=== PATIENT | male | born 1995 | race Two or more races ===

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

== ENCOUNTER 2017-03-07 10:25 | Inpatient (IN) | payer SELFPAY ==
[~2017-03-07] VITALS: Ht 160 cm; Wt 49.7 kg
--- NOTE | 2017-03-07 10:42 | PHYS DOC ---
Past Medical History Past Medical History: No Pertinent History Past Surgical History: No Surgical History Alcohol Use: Rarely Adult General Chief Complaint Chief Complaint: ABDOMINAL PAIN HPI HPI Patient is a 21 year old male who presents with pain, nausea vomiting , rectal bleeding. He states his back spent bothering him in for last week she' s been doing Advil for the last 7 days he's been taking about 5 times a day. He states 2 days ago he developed periumbilical pain and use a bathroom had bright red blood per rectum twice. He states the pain was tolerable and is able to still work. This morning his pain got worse he vomited black vomit and presents to the ER. According his mom's not been eating or drinking much over the last several weeks. He denies any chest pain but complains of pain around his belly button and his left upper quadrant. He denies any falls. He states he's never had blood per rectum before. He denies any past medical history other than having a diagnosis of possibly anxiety. He denies any abdominal surgeries. He denies any testicular pain. He is tachycardic with heart rate in the 108 range on my exam. We presented to the ER they notice heart rate 116. Review of Systems Review of Systems Constitutional: Denies fever or chills [] Eyes: Denies change in visual acuity, redness, or eye pain [] HENT: Denies nasal congestion or sore throat [] Respiratory: Denies cough or shortness of breath [] Cardiovascular: No additional information not addressed in HPI [] GI: Positive for abdominal pain, nausea, vomiting, bloody stools Denies diarrhea [] : Denies dysuria or hematuria [] Musculoskeletal: Denies back pain or joint pain [] Integument: Denies rash or skin lesions [] Neurologic: Denies headache, focal weakness or sensory changes [] Endocrine: Denies polyuria or polydipsia [] All other systems were reviewed and found to be within normal limits, except as documented in this note. Current Medications Current Medications Current Medications Medications (Trade) Dose Ordered Sig/Aleyda Start Time Stop Time Status Last Admin Dose Admin Info (Do NOT chart on this entry -- for MONITORING) 1 each PRN DAILY PRN 03/07/17 11:45 03/09/17 11:44 Iohexol (Omnipaque 300 Mg/ml) 75 ml 1X ONCE 03/07/17 11:45 03/07/17 11:46 DC 03/07/17 11:53 75 ML Morphine Sulfate 2 mg PRN Q15MIN PRN 03/07/17 11:00 03/08/17 10:59 Ondansetron HCl (Zofran) 4 mg 1X ONCE 03/07/17 10:45 03/07/17 10:46 DC 03/07/17 10:56 4 MG Pantoprazole Sodium 80 mg/ Sodium Chloride 100 ml @ 10 mls/hr Q10H 03/07/17 13:00 Sodium Chloride 1,000 ml @ 1,000 mls/hr 1X ONCE 03/07/17 12:15 03/07/17 13:14 03/07/17 12:23 1,000 MLS/HR Allergies Allergies Allergies Coded Allergies Type Severity Reaction Last Updated Verified acetaminophen Allergy Intermediate NAUSEA 08/22/16 Yes codeine Allergy Intermediate NAUSEA 08/22/16 Yes Physical Exam Physical Exam Constitutional: Well developed, well nourished, no acute distress, non-toxic appearance. [] HENT: Normocephalic, atraumatic, bilateral external ears normal, oropharynx moist, no oral exudates, nose normal. [] Eyes: PERRLA, EOMI, conjunctiva normal, no discharge. [] Neck: Normal range of motion, no tenderness, supple, no stridor. [] Cardiovascular:Heart rate regular rhythm, no murmur [] Lungs & Thorax: Bilateral breath sounds clear to auscultation [] Abdomen: Bowel sounds normal, soft, tender to palpation in the right lower quadrant and left upper quadrant, no rebound or guarding, no masses, no pulsatile masses. No testicular pain. Skin: Warm, dry, no erythema, no rash. [] Back: No tenderness, no CVA tenderness. [] Extremities: No tenderness, no cyanosis, no clubbing, ROM intact, no edema. [] Neurologic: Alert and oriented X 3, normal motor function, normal sensory function, no focal deficits noted. [] Psychologic: Affect normal, judgement normal, mood normal. [] Current Patient Data Vital Signs Vital Signs Date Time Temp Pulse Resp B/P (MAP) Pulse Ox O2 Delivery O2 Flow Rate FiO2 03/07/17 12:13 96 129/66 (87) 99 Room Air 03/07/17 10:39 98.2 22 98.2 Lab Values Laboratory Tests Test 03/07/17 10:37 03/07/17 10:40 03/07/17 10:45 Urine Collection Type Void Urine Color Yellow Urine Clarity Clear Urine pH 6.0 Urine Specific [place] 1.015 Urine Protein Negative mg/dL (NEG-TRACE) Urine Glucose (UA) Negative mg/dL (NEG) Urine Ketones (Stick) Trace mg/dL (NEG) Urine Blood Negative (NEG) Urine Nitrite Negative (NEG) Urine Bilirubin Negative (NEG) Urine Urobilinogen Dipstick 0.2 mg/dL (0.2 mg/dL) Urine Leukocyte Esterase Negative (NEG) Urine RBC 0 /HPF (0-2) Urine WBC 1-4 /HPF (0-4) Urine Squamous Epithelial Cells Mod /LPF Urine Bacteria Few /HPF (0-FEW) Urine Mucus Slight /LPF White Blood Count 11.3 x10^3/uL (4.0-11.0) H Red Blood Count 4.74 x10^6/uL (4.30-5.70) Hemoglobin 15.2 g/dL (13.0-17.5) Hematocrit 45.4 % (39.0-53.0) Mean Corpuscular Volume 96 fL (79-100) Mean Corpuscular Hemoglobin 32 pg (25-35) Mean Corpuscular Hemoglobin Concent 34 g/dL (31-37) Red Cell Distribution Width 13.2 % (11.5-14.5) Platelet Count 333 x10^3/uL (140-400) Neutrophils (%) (Auto) 68 % (31-73) Lymphocytes (%) (Auto) 23 % (24-48) L Monocytes (%) (Auto) 9 % (0-9) Eosinophils (%) (Auto) 0 % (0-3) Basophils (%) (Auto) 1 % (0-3) Neutrophils # (Auto) 7.6 x10^3uL (1.8-7.7) Lymphocytes # (Auto) 2.6 x10^3/uL (1.0-4.8) Monocytes # (Auto) 1.0 x10^3/uL (0.0-1.1) Eosinophils # (Auto) 0.0 x10^3/uL (0.0-0.7) Basophils # (Auto) 0.1 x10^3/uL (0.0-0.2) Prothrombin Time 14.0 SEC (11.7-14.0) Prothrombin Time INR 1.2 (0.8-1.1) H PTT 28 SEC (24-38) Sodium Level 139 mmol/L (136-145) Potassium Level 3.7 mmol/L (3.5-5.1) Chloride Level 103 mmol/L (98-107) Carbon Dioxide Level 20 mmol/L (21-32) L Anion Gap 16 (6-14) H Blood Urea Nitrogen 20 mg/dL (8-26) Creatinine 1.2 mg/dL (0.7-1.3) Estimated GFR (Cockcroft-Gault) 78.0 Glucose Level 110 mg/dL (70-99) H Calcium Level 10.0 mg/dL (8.5-10.1) Total Bilirubin 1.0 mg/dL (0.2-1.0) Direct Bilirubin 0.2 mg/dL (0.0-0.2) Aspartate Amino Transferase (AST) 22 U/L (15-37) Alanine Aminotransferase (ALT) 17 U/L (16-63) Alkaline Phosphatase 86 U/L (46-116) Creatine Kinase 128 U/L (39-308) Total Protein 8.7 g/dL (6.4-8.2) H Albumin 4.8 g/dL (3.4-5.0) Lipase 87 U/L (73-393) Urine Opiates Screen Neg (NEG) Urine Methadone Screen Neg (NEG) Urine Barbiturates Neg (NEG) Urine Phencyclidine Screen Neg (NEG) Urine Amphetamine/Methamphetamine Neg (NEG) Urine Benzodiazepines Screen Neg (NEG) Urine Cocaine Screen Neg (NEG) Urine Cannabinoids Screen Neg (NEG) Urine Ethyl Alcohol Neg (NEG) Stool Occult Blood Positive (NEG) Laboratory Tests 03/07/17 10:40 Laboratory Tests 03/07/17 10:40 EKG EKG [] Radiology/Procedures Radiology/Procedures [facility] [address] [place] [address] IMAGING REPORT Signed PATIENT: JAMMIE DANGELO ACCOUNT: [id number] : 1995 LOCATION: ER AGE: 21 SEX: M EXAM STATUS: REG ER ORD. PHYSICIAN: YUNI QUINONES MD REASON: abd pain PROCEDURE: CT ABD PELV W/ IV CONTRST ONLY CT ABD PELV W/ IV CONTRST ONLY History:Abdominal pain, dark bloody stools since last night Technique: After administration of intravenous contrast, CT imaging was performed of the abdomen and pelvis, multiplanar reconstruction images submitted. No oral contrast was given as per request. Exposure: One or more of the following individualized dose reduction techniques were utilized for this exam: 1. Automated exposure control.2. Adjustment of the mA and/or KV according to patient size.3. Use of iterative reconstruction technique. Contrast: 35 cc Omnipaque 300 Comparison: None Findings: There is no abnormality visualized lung bases. No focal abnormality is identified of the liver, spleen, pancreas, gallbladder, adrenal glands, kidneys. Accurate evaluation of bowel is limited without oral contrast. There is no free air or significant intraluminal fluid collection. Normal appendix is visualized. No significant inflammatory change is identified about the bowel. There is nonspecific heterogeneity of the seminal vesicles. Impression: 1.No acute abnormality is identified. DICTATED and SIGNED BY: JAQUELIN GUILLEN MD DATE: 03/07/17 1204 CC: YUNI QUINONES MD; MALI ABAD MD ~ Impressions: GI bleed Mild metabolic acidosis Tachycardia Course & Med Decision Making Course & Med Decision Making Pertinent Labs and Imaging studies reviewed. (See chart for details) Rectal exam performed by nurse, she states no external hemorrhoids noted no blood noted on rectal exam. Patient arrived tachycardic with heart rate at 116. Labs shows mild acidosis with a mild. I assume this is from starvation ketoacidosis she does have some ketones in his urine as well. He received 2 L normal saline and his heart rate has improved to 95-105 range. He is currently receiving a second liter. CT abdomen and pelvis is nonacute. He's been typed and screened and Protonix IV has been started. He likely has gastritis or ulceration secondary from nonsteroidal use for his back pain. Spoke with Dr. Wong who agrees to admit the patient. Patient's in stable condition at this time. Dragon Disclaimer Dragon Disclaimer This electronic medical record was generated, in whole or in part, using a voice recognition dictation system. Departure Departure Impression: Primary Impression: GI bleed Disposition: ADMITTED INPATIENT Admitting Physician: Shannan Wong Condition: STABLE Referrals: MALI ABAD MD (PCP) YUNI QUINONES MD Mar 07, 2017 10:42
[2017-03-07] MEDS ORDERED: IV NORMAL SALINE 1000ML BAG 1,000 ML IV SCH (10:44)
[2017-03-07] MEDS ORDERED: ONDANSETRON PF 4 MG/2 ML VIAL. IV ONE (10:45)
[2017-03-07 10:58] LABS: BASO # 0.1 x10^3/uL (0.0-0.2); BASO % 1 % (0-3); EOS % 0 % (0-3); HEMATOCRIT 45.4 % (39.0-53.0); HEMOGLOBIN 15.2 g/dL (13.0-17.5); LYMPH # 2.6 x10^3/uL (1.0-4.8); LYMPH % 23 % (24-48); MEAN CORPUSCULAR HEMOGLOBIN 32 pg (25-35); MEAN CORPUSCULAR HGB CONC 34 g/dL (31-37); MEAN CORPUSCULAR VOLUME 96 fL (79-100); MONO % 9 % (0-9); NEUT % 68 % (31-73); PLATELET COUNT 333 x10^3/uL (140-400); RED BLOOD COUNT 4.74 x10^6/uL (4.30-5.70); RED CELL DISTRIBUTION WIDTH 13.2 % (11.5-14.5); WHITE BLOOD COUNT 11.3 x10^3/uL (4.0-11.0)
[2017-03-07] MEDS ORDERED: MORPHINE SULFATE 2 MG/ML DISP.SYRIN. IV/SQ PRN (11:00)
[2017-03-07 11:05] LABS: CREATININE 1.2 mg/dL (0.7-1.3)
[2017-03-07 11:06] LABS: POTASSIUM 3.7 mmol/L (3.5-5.1)
[2017-03-07 11:12] LABS: BACTERIA,URINE FEW /HPF (0-FEW); BILIRUBIN,URINE NEGATIVE (NEG); GLUCOSE,URINE NEGATIVE (NEG); NITRITE,URINE NEGATIVE (NEG); PROTEIN,URINE NEGATIVE (NEG-TRACE); RBC,URINE 0 /HPF (0-2); SQUAMOUS EPITHELIAL CELL,UR MOD /LPF; UROBILINOGEN,URINE 0.2 mg/dL (0.2 mg/dL)
[2017-03-07 11:12] LABS: ALBUMIN 4.8 g/dL (3.4-5.0); DIRECT BILIRUBIN 0.2 mg/dL (0.0-0.2); TOTAL PROTEIN 8.7 g/dL (6.4-8.2)
[2017-03-07 11:13] LABS: NEG OBC FOB NEG; POS OBC FOB POS
[2017-03-07 11:15] LABS: BARBITURATES NEG (NEG); BENZODIAZEPINES NEG (NEG); CANNABINOIDS NEG (NEG); COCAINE NEG (NEG); METHADONE NEG (NEG); OPIATES NEG (NEG); PHENCYCLIDINE NEG (NEG)
[2017-03-07 11:33] LABS: INR 1.2 (0.8-1.1)
[2017-03-07] MEDS ORDERED: IOHEXOL 300 MG/ML 100ML VIAL. IV ONE (11:45)
[2017-03-07] MEDS ORDERED: CONTRAST GIVEN MC PRN (11:45)
[2017-03-07] MEDS ORDERED: IV NORMAL SALINE 1000ML BAG 1,000 ML IV ONE (12:15)
--- NOTE | 2017-03-07 12:15 | RAD ---
CT ABD PELV W/ IV CONTRST ONLY History:Abdominal pain, dark bloody stools since last night Technique: After administration of intravenous contrast, CT imaging was performed of the abdomen and pelvis, multiplanar reconstruction images submitted. No oral contrast was given as per request. Exposure: One or more of the following individualized dose reduction techniques were utilized for this exam: 1. Automated exposure control.2. Adjustment of the mA and/or KV according to patient size.3. Use of iterative reconstruction technique. Contrast: 35 cc Omnipaque 300 Comparison: None Findings: There is no abnormality visualized lung bases. No focal abnormality is identified of the liver, spleen, pancreas, gallbladder, adrenal glands, kidneys. Accurate evaluation of bowel is limited without oral contrast. There is no free air or significant intraluminal fluid collection. Normal appendix is visualized. No significant inflammatory change is identified about the bowel. There is nonspecific heterogeneity of the seminal vesicles. Impression: 1.No acute abnormality is identified.
[2017-03-07] MEDS: PANTOPRAZOLE SODIUM IV DRIP 80 MG in IV NORMAL SALINE 100ML 100 ML IV SCH ×2 (12:46→20:37)
[2017-03-07] MEDS ORDERED: MORPHINE SULFATE 2 MG/ML DISP.SYRIN. IV PRN (13:00)
[2017-03-07] MEDS ORDERED: ONDANSETRON PF 4 MG/2 ML VIAL. IV PRN (13:00)
[2017-03-07] MEDS ORDERED: IV DEXTROSE 5 %-0.45 % NACL 1,000 ML IV ONE (13:00)
[2017-03-07 13:25] VITALS: BP 117/72
[2017-03-07 15:39] VITALS: BP 112/55
[2017-03-07 18:24] LABS: HEMATOCRIT 37.1 % (39.0-53.0); HEMOGLOBIN 12.7 g/dL (13.0-17.5); RED BLOOD COUNT 3.86 x10^6/uL (4.30-5.70); WHITE BLOOD COUNT 7.1 x10^3/uL (4.0-11.0)
[2017-03-07 19:00] VITALS: BP 103/48
[2017-03-07 23:00] VITALS: BP 105/65
[2017-03-08 03:00] VITALS: BP 97/52
[2017-03-08] MEDS: PANTOPRAZOLE SODIUM IV DRIP 80 MG in IV NORMAL SALINE 100ML 100 ML IV SCH (04:43)
[2017-03-08 06:22] LABS: BASO # 0.1 x10^3/uL (0.0-0.2); BASO % 1 % (0-3); EOS % 2 % (0-3); HEMATOCRIT 36.1 % (39.0-53.0); HEMOGLOBIN 12.3 g/dL (13.0-17.5); LYMPH # 2.4 x10^3/uL (1.0-4.8); LYMPH % 39 % (24-48); MEAN CORPUSCULAR HEMOGLOBIN 33 pg (25-35); MEAN CORPUSCULAR HGB CONC 34 g/dL (31-37); MEAN CORPUSCULAR VOLUME 96 fL (79-100); MONO % 11 % (0-9); NEUT % 47 % (31-73); PLATELET COUNT 236 x10^3/uL (140-400); RED BLOOD COUNT 3.78 x10^6/uL (4.30-5.70); WHITE BLOOD COUNT 6.1 x10^3/uL (4.0-11.0)
[2017-03-08 06:44] LABS: CREATININE 0.8 mg/dL (0.7-1.3); GFR 124.5; POTASSIUM 3.6 mmol/L (3.5-5.1)
[2017-03-08 07:00] VITALS: BP 104/45
[2017-03-08 11:00] VITALS: BP 99/46
--- NOTE | 2017-03-08 11:18 | PDOC ---
PROGRESS NOTES Subjective Subjective Patient reports abdominal pain has resolved. No emesis or nausea since admission to the floor yesterday. Objective Objective Vital Signs Date Time Temp Pulse Resp B/P (MAP) Pulse Ox O2 Delivery O2 Flow Rate FiO2 03/08/17 08:10 Room Air 03/08/17 07:00 97.9 87 18 104/45 (64) 97 97.9 Intake and Output 03/08/17 07:00 Intake Total 2135 ml Balance 2135 ml Intake Oral 0 ml IV Total 2135 ml # Voids 4 Physical Exam Abdomen: Normal bowel sounds, Soft, No tenderness Heart: Regular rate Extremities: No edema General: Alert, Oriented X3, No acute distress Lungs: Clear to auscultation MUSCULOSKELETAL: Other (mild diffuse low back TTP) Assessment Assessment Problems Medical Problems: (1) GI bleed Status: Acute Plan Plan of Care 1. UGI bleed with gastritis - appears due to recent overuse of Ibuprofen. Hgb a little decreased since yesterday, probably due to dilution from IVF. Pain has resolved. CT abdomen was unremarkable. Will try clear liquids and advance as tolerated, home later today if stable. Home on PPI for one month. 2. low back strain - advised Tylenol prn. Comment Review of Relevant I have reviewed the following items alayna (where applicable) has been applied. Labs Laboratory Tests Test 03/07/17 10:37 03/07/17 10:40 03/07/17 10:45 03/07/17 18:17 Urine Collection Type Void Urine Color Yellow Urine Clarity Clear Urine pH 6.0 Urine Specific [place] 1.015 Urine Protein Negative mg/dL (NEG-TRACE) Urine Glucose (UA) Negative mg/dL (NEG) Urine Ketones (Stick) Trace mg/dL (NEG) Urine Blood Negative (NEG) Urine Nitrite Negative (NEG) Urine Bilirubin Negative (NEG) Urine Urobilinogen Dipstick 0.2 mg/dL (0.2 mg/dL) Urine Leukocyte Esterase Negative (NEG) Urine RBC 0 /HPF (0-2) Urine WBC 1-4 /HPF (0-4) Urine Squamous Epithelial Cells Mod /LPF Urine Bacteria Few /HPF (0-FEW) Urine Mucus Slight /LPF White Blood Count 11.3 x10^3/uL (4.0-11.0) 7.1 x10^3/uL (4.0-11.0) Red Blood Count 4.74 x10^6/uL (4.30-5.70) 3.86 x10^6/uL (4.30-5.70) Hemoglobin 15.2 g/dL (13.0-17.5) 12.7 g/dL (13.0-17.5) Hematocrit 45.4 % (39.0-53.0) 37.1 % (39.0-53.0) Mean Corpuscular Volume 96 fL (79-100) 96 fL (79-100) Mean Corpuscular Hemoglobin 32 pg (25-35) 33 pg (25-35) Mean Corpuscular Hemoglobin Concent 34 g/dL (31-37) 34 g/dL (31-37) Red Cell Distribution Width 13.2 % (11.5-14.5) 13.0 % (11.5-14.5) Platelet Count 333 x10^3/uL (140-400) 253 x10^3/uL (140-400) Neutrophils (%) (Auto) 68 % (31-73) Lymphocytes (%) (Auto) 23 % (24-48) Monocytes (%) (Auto) 9 % (0-9) Eosinophils (%) (Auto) 0 % (0-3) Basophils (%) (Auto) 1 % (0-3) Neutrophils # (Auto) 7.6 x10^3uL (1.8-7.7) Lymphocytes # (Auto) 2.6 x10^3/uL (1.0-4.8) Monocytes # (Auto) 1.0 x10^3/uL (0.0-1.1) Eosinophils # (Auto) 0.0 x10^3/uL (0.0-0.7) Basophils # (Auto) 0.1 x10^3/uL (0.0-0.2) Prothrombin Time 14.0 SEC (11.7-14.0) Prothromb Time International Ratio 1.2 (0.8-1.1) Activated Partial Thromboplast Time 28 SEC (24-38) Sodium Level 139 mmol/L (136-145) Potassium Level 3.7 mmol/L (3.5-5.1) Chloride Level 103 mmol/L (98-107) Carbon Dioxide Level 20 mmol/L (21-32) Anion Gap 16 (6-14) Blood Urea Nitrogen 20 mg/dL (8-26) Creatinine 1.2 mg/dL (0.7-1.3) Estimated GFR (Cockcroft-Gault) 78.0 Glucose Level 110 mg/dL (70-99) Calcium Level 10.0 mg/dL (8.5-10.1) Total Bilirubin 1.0 mg/dL (0.2-1.0) Direct Bilirubin 0.2 mg/dL (0.0-0.2) Aspartate Amino Transf (AST/SGOT) 22 U/L (15-37) Alanine Aminotransferase (ALT/SGPT) 17 U/L (16-63) Alkaline Phosphatase 86 U/L (46-116) Creatine Kinase 128 U/L (39-308) Total Protein 8.7 g/dL (6.4-8.2) Albumin 4.8 g/dL (3.4-5.0) Lipase 87 U/L (73-393) Urine Opiates Screen Neg (NEG) Urine Methadone Screen Neg (NEG) Urine Barbiturates Neg (NEG) Urine Phencyclidine Screen Neg (NEG) Urine Amphetamine/Methamphetamine Neg (NEG) Urine Benzodiazepines Screen Neg (NEG) Urine Cocaine Screen Neg (NEG) Urine Cannabinoids Screen Neg (NEG) Urine Ethyl Alcohol Neg (NEG) Stool Occult Blood Positive (NEG) Test 03/08/17 03:45 03/08/17 05:45 Sodium Level 143 mmol/L (136-145) Potassium Level 3.6 mmol/L (3.5-5.1) Chloride Level 110 mmol/L (98-107) Carbon Dioxide Level 24 mmol/L (21-32) Anion Gap 9 (6-14) Blood Urea Nitrogen 14 mg/dL (8-26) Creatinine 0.8 mg/dL (0.7-1.3) Estimated GFR (Cockcroft-Gault) 124.5 Glucose Level 78 mg/dL (70-99) Calcium Level 9.0 mg/dL (8.5-10.1) White Blood Count 6.1 x10^3/uL (4.0-11.0) Red Blood Count 3.78 x10^6/uL (4.30-5.70) Hemoglobin 12.3 g/dL (13.0-17.5) Hematocrit 36.1 % (39.0-53.0) Mean Corpuscular Volume 96 fL (79-100) Mean Corpuscular Hemoglobin 33 pg (25-35) Mean Corpuscular Hemoglobin Concent 34 g/dL (31-37) Red Cell Distribution Width 13.0 % (11.5-14.5) Platelet Count 236 x10^3/uL (140-400) Neutrophils (%) (Auto) 47 % (31-73) Lymphocytes (%) (Auto) 39 % (24-48) Monocytes (%) (Auto) 11 % (0-9) Eosinophils (%) (Auto) 2 % (0-3) Basophils (%) (Auto) 1 % (0-3) Neutrophils # (Auto) 2.9 x10^3uL (1.8-7.7) Lymphocytes # (Auto) 2.4 x10^3/uL (1.0-4.8) Monocytes # (Auto) 0.7 x10^3/uL (0.0-1.1) Eosinophils # (Auto) 0.1 x10^3/uL (0.0-0.7) Basophils # (Auto) 0.1 x10^3/uL (0.0-0.2) Laboratory Tests Test 03/07/17 18:17 03/08/17 03:45 03/08/17 05:45 White Blood Count 7.1 x10^3/uL (4.0-11.0) 6.1 x10^3/uL (4.0-11.0) Red Blood Count 3.86 x10^6/uL (4.30-5.70) 3.78 x10^6/uL (4.30-5.70) Hemoglobin 12.7 g/dL (13.0-17.5) 12.3 g/dL (13.0-17.5) Hematocrit 37.1 % (39.0-53.0) 36.1 % (39.0-53.0) Mean Corpuscular Volume 96 fL (79-100) 96 fL (79-100) Mean Corpuscular Hemoglobin 33 pg (25-35) 33 pg (25-35) Mean Corpuscular Hemoglobin Concent 34 g/dL (31-37) 34 g/dL (31-37) Red Cell Distribution Width 13.0 % (11.5-14.5) 13.0 % (11.5-14.5) Platelet Count 253 x10^3/uL (140-400) 236 x10^3/uL (140-400) Sodium Level 143 mmol/L (136-145) Potassium Level 3.6 mmol/L (3.5-5.1) Chloride Level 110 mmol/L (98-107) Carbon Dioxide Level 24 mmol/L (21-32) Anion Gap 9 (6-14) Blood Urea Nitrogen 14 mg/dL (8-26) Creatinine 0.8 mg/dL (0.7-1.3) Estimated GFR (Cockcroft-Gault) 124.5 Glucose Level 78 mg/dL (70-99) Calcium Level 9.0 mg/dL (8.5-10.1) Neutrophils (%) (Auto) 47 % (31-73) Lymphocytes (%) (Auto) 39 % (24-48) Monocytes (%) (Auto) 11 % (0-9) Eosinophils (%) (Auto) 2 % (0-3) Basophils (%) (Auto) 1 % (0-3) Neutrophils # (Auto) 2.9 x10^3uL (1.8-7.7) Lymphocytes # (Auto) 2.4 x10^3/uL (1.0-4.8) Monocytes # (Auto) 0.7 x10^3/uL (0.0-1.1) Eosinophils # (Auto) 0.1 x10^3/uL (0.0-0.7) Basophils # (Auto) 0.1 x10^3/uL (0.0-0.2) Medications Current Medications Sodium Chloride 1,000 ml @ 1,000 mls/hr Q1H IV Last administered on 10:57; Start 03/07/17 at 10:44; Stop 03/07/17 at 11:43; Status DC Ondansetron HCl (Zofran) 4 mg 1X ONCE IV Last administered on 03/07/17 10:56 ; Start 03/07/17 at 10:45; Stop 03/07/17 at 10:46; Status DC Morphine Sulfate 2 mg PRN Q15MIN PRN IV/SQ PAIN GREATER THAN 3/10; Start 03/07 at 11:00; Stop 03/08/17 at 10:59 Iohexol (Omnipaque 300 Mg/ml) 75 ml 1X ONCE IV Last administered on 11:53; Start 03/07/17 at 11:45; Stop 03/07/17 at 11:46; Status DC Info (Do NOT chart on this entry -- for MONITORING) 1 each PRN DAILY PRN MC SEE COMMENTS; Start 03/07/17 at 11:45; Stop 03/09/17 at 11:44 Sodium Chloride 1,000 ml @ 1,000 mls/hr 1X ONCE IV Last administered on 03/07 12:23; Start 03/07/17 at 12:15; Stop 03/07/17 at 13:14; Status DC Pantoprazole Sodium 80 mg/ Sodium Chloride 100 ml @ 10 mls/hr Q10H IV Last administered on 03/08/17 04:43; Start 03/07/17 at 13:00 Ondansetron HCl (Zofran) 4 mg PRN Q8HRS PRN IV NAUSEA/VOMITING; Start at 13:00; Stop 03/08/17 at 12:59 Morphine Sulfate 2 mg PRN Q2HR PRN IV PAIN; Start 03/07/17 at 13:00; Stop at 12:59 Dextrose/Sodium Chloride 1,000 ml @ 100 mls/hr 1X ONCE IV Last administered on 03/07/17 13:09; Start 03/07/17 at 13:00; Stop 03/07/17 at 22:59; Status DC Vitals/I & O Vital Sign - Last 24 Hours 03/07/17 03/07/17 03/07/17 03/07/17 11:37 12:13 13:25 13:40 Temp 97.7 97.7 Pulse 109 96 85 Resp 22 B/P (MAP) 126/59 (81) 129/66 (87) 117/72 (87) Pulse Ox 99 99 99 O2 Delivery Room Air Room Air Room Air Room Air 03/07/17 03/07/17 03/07/17 03/07/17 15:39 19:00 20:00 23:00 Temp 98.6 98.1 97.5 98.6 98.1 97.5 Pulse 76 74 70 Resp 18 18 19 B/P (MAP) 112/55 (74) 103/48 (66) 105/65 (78) Pulse Ox 100 98 100 O2 Delivery Room Air Room Air Room Air Room Air 03/08/17 03/08/17 03/08/17 03:00 07:00 08:10 Temp 96.4 97.9 96.4 97.9 Pulse 76 87 Resp 18 18 B/P (MAP) 97/52 (67) 104/45 (64) Pulse Ox 99 97 O2 Delivery Room Air Room Air Room Air Intake and Output 03/07/17 03/07/17 03/08/17 15:00 23:00 07:00 Intake Total 1000 ml 95 ml 1040 ml Balance 1000 ml 95 ml 1040 ml DANE DIETRICH MD Mar 08, 2017 11:17
[2017-03-08] MEDS ORDERED: ACET500T68 PO (11:23)
[2017-03-08] MEDS ORDERED: OMEP40CA5 PO (11:23)
--- NOTE | 2017-03-08 12:12 | DS ---
DATE OF DISCHARGE: 03/08/2017 DATE OF ADMISSION: 03/07/2017. DATE OF DISCHARGE: 03/08/2017. This is a 23-hour summary. This is combined history and physical and discharge summary. CHIEF COMPLAINT: Abdominal pain with nausea and vomiting. HISTORY OF PRESENT ILLNESS: The patient is a 21-year-old male who presented to the Emergency Room with the above complaint. He reported a several day history of increasing abdominal pain. He had been having some low back pain and taking a large amount of Advil for this. A few days prior to admission, he developed some abdominal pain and this continued to worsen. He had some emesis that appeared very dark to him. He also reported seeing bright red blood in his stool. Evaluation in the Emergency Room showed the patient to be mild mildly tachycardic when he first presented. His hemoglobin was normal at 15.2. Rectal exam was negative for bright red blood, but was positive for occult blood. CT of the abdomen and pelvis was unremarkable. The patient was started on Protonix drip and admitted. PAST MEDICAL HISTORY: Anxiety, gastroesophageal reflux disease. HOSPITAL COURSE: The patient has had no emesis since admission. He has been on a Protonix drip. He received several liters of IV fluid. He reports that his abdominal pain has resolved. His hemoglobin decreased last night to 12.7 and was 12.3 this morning. This probably represents dilution from the IV fluids as there has been no evidence of ongoing bleeding since his admission. He remained with stable vital signs and no tachycardia. He is not hypoxic on room air. We will start the patient on clear liquids and advance his diet as tolerated. If he can tolerate a regular diet, he will be discharged home later today. The patient is advised to take Tylenol only for his back pain. He will be given a prescription for a month of omeprazole. PAST SURGICAL HISTORY: Surgery on his jaw in 2009. ALLERGIES: THE PATIENT IS ALLERGIC TO TYLENOL #3 AND CODEINE WHICH CAUSE STOMACH UPSET. FAMILY HISTORY: Noncontributory. SOCIAL HISTORY: The patient is single. He works at [employer]. He smokes cigarettes rarely. He does not drink alcohol to excess. He lives with his mother. REVIEW OF SYSTEMS: The patient denies fever or chills. He denies cough or shortness of breath. He denies chest pain or palpitations. He denies other episodes of abdominal pain or nausea prior to what is noted in the history of present illness. He has had some low back pain for a while. He denies numbness or tingling in his legs with this pain. PHYSICAL EXAMINATION: GENERAL: The patient is alert and oriented x 3, resting comfortably in bed in no acute distress. HEENT: PERRL, EOMI, sclerae clear. Oropharynx: Mucous membranes moist. NECK: Supple, without lymphadenopathy. LUNGS: Clear to auscultation. CARDIOVASCULAR: Regular rhythm without murmur. ABDOMEN: Soft, nontender, normoactive bowel sounds are present. EXTREMITIES: Without edema. FINAL DIAGNOSES: 1. Upper gastrointestinal bleed with gastritis. 2. NSAID overuse. 3. Low back strain. DISCHARGE MEDICATIONS: Omeprazole 40 mg daily x 30 days, Tylenol 1000 mg q. 6 hours. p.r.n. pain, Zofran 8 mg q. 8 hours p.r.n. nausea. DISCHARGE INSTRUCTIONS: Follow up with Dr. Jennings as needed. DANE DIETRICH MD DR: ALVA/lindy JOB#: [id number] / [id number]
--- NOTE | 2017-03-10 12:00 | SSS ---
ADMIT DATE: 03/08/2017 DATE OF ADMISSION: 03/07/2017. DATE OF DISCHARGE: 03/08/2017. This is a 23-hour summary. This is combined history and physical and discharge summary. CHIEF COMPLAINT: Abdominal pain with nausea and vomiting. HISTORY OF PRESENT ILLNESS: The patient is a 21-year-old male who presented to the Emergency Room with the above complaint. He reported a several day history of increasing abdominal pain. He had been having some low back pain and taking a large amount of Advil for this. A few days prior to admission, he developed some abdominal pain and this continued to worsen. He had some emesis that appeared very dark to him. He also reported seeing bright red blood in his stool. Evaluation in the Emergency Room showed the patient to be mild mildly tachycardic when he first presented. His hemoglobin was normal at 15.2. Rectal exam was negative for bright red blood, but was positive for occult blood. CT of the abdomen and pelvis was unremarkable. The patient was started on a Protonix drip and admitted. PAST MEDICAL HISTORY: Anxiety, gastroesophageal reflux disease. HOSPITAL COURSE: The patient has had no emesis since admission. He has been on a Protonix drip. He received several liters of IV fluid. He reports that his abdominal pain has resolved. His hemoglobin decreased last night to 12.7 and was 12.3 this morning. This probably represents dilution from the IV fluids as there has been no evidence of ongoing bleeding since his admission. He remained with stable vital signs and no tachycardia. He is not hypoxic on room air. We will start the patient on clear liquids and advance his diet as tolerated. If he can tolerate a regular diet, he will be discharged home later today. The patient is advised to take Tylenol only for his back pain. He will be given a prescription for a month of omeprazole. PAST SURGICAL HISTORY: Surgery on his jaw in 2009. ALLERGIES: THE PATIENT IS ALLERGIC TO TYLENOL #3 AND CODEINE WHICH CAUSE STOMACH UPSET. FAMILY HISTORY: Noncontributory. SOCIAL HISTORY: The patient is single. He works at [employer]. He smokes cigarettes rarely. He does not drink alcohol to excess. He lives with his mother. REVIEW OF SYSTEMS: The patient denies fever or chills. He denies cough or shortness of breath. He denies chest pain or palpitations. He denies other episodes of abdominal pain or nausea prior to what is noted in the history of present illness. He has had some low back pain for a while. He denies numbness or tingling in his legs with this pain. PHYSICAL EXAMINATION: GENERAL: The patient is alert and oriented x 3, resting comfortably in bed in no acute distress. HEENT: PERRL, EOMI, sclerae clear. Oropharynx: Mucous membranes moist. NECK: Supple, without lymphadenopathy. LUNGS: Clear to auscultation. CARDIOVASCULAR: Regular rhythm without murmur. ABDOMEN: Soft, nontender, normoactive bowel sounds are present. EXTREMITIES: Without edema. FINAL DIAGNOSES: 1. Upper gastrointestinal bleed with gastritis. 2. NSAID overuse. 3. Low back strain. DISCHARGE MEDICATIONS: Omeprazole 40 mg daily x 30 days, Tylenol 1000 mg q. 6 hours. p.r.n. pain, Zofran 8 mg q. 8 hours p.r.n. nausea. DISCHARGE INSTRUCTIONS: Follow up with Dr. Jennings as needed. DANE DIETRICH MD DR: ALVA/lindy JOB#: [id number] / [id number] [id number]
== END 2017-03-08 14:30 | disposition home or self-care (01) | DRG 379 ==
LOC: ER 10:25 → 5 NORTH 12:30
PROVIDERS: ADMIT Family Medicine; ATTEND Family Medicine
DX: K29.71 Gastritis, unspecified, with bleeding (principal); F41.9 Anxiety disorder, unspecified; K21.9 Gastro-esophageal reflux disease without esophagitis; S39.012A Strain of muscle, fascia and tendon of lower back, initial encounter; X58.XXXA Exposure to other specified factors, initial encounter; Y93.89 Activity, other specified; Y92.89 Other specified places as the place of occurrence of the external cause; Y99.8 Other external cause status; Z88.1 Allergy status to other antibiotic agents; Z88.5 Allergy status to narcotic agent
CPT/HCPCS: 36415; 74177; 80048; 80076; 80307; 81001; 82274; 82550; 83690; 85025; 85027; 85610; 85730; 86850; 86900; 86901; 96361; 96374; C9113; J2405; J7030; Q9967; 99285-25; G0479

== ENCOUNTER 2017-12-13 20:58 | Emergency (ER) | payer SELFPAY ==
[~2017-12-13] VITALS: Ht 160 cm; Wt 49.9 kg
[~2017-12-13 20:58] MED LIST: ACET500T68 PO; OMEP40CA5 PO
[2017-12-13 21:43] VITALS: BP 127/61
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
[2017-12-13] MEDS ORDERED: ORPH100T PO (21:54)
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
== END 2017-12-13 23:28 | disposition home or self-care (01) ==
LOC: ER 20:58
DX: S16.1XXA Strain of muscle, fascia and tendon at neck level, initial encounter (principal); S50.12XA Contusion of left forearm, initial encounter; Z88.5 Allergy status to narcotic agent; V43.52XA Car driver injured in collision with other type car in traffic accident, initial encounter; Y93.89 Activity, other specified; Y92.410 Unspecified street and highway as the place of occurrence of the external cause; Y99.8 Other external cause status
CPT/HCPCS: 70450; 72125; 99284